=== PATIENT | female | born 2000 | race African-American/Black ===

== ENCOUNTER 2024-07-29 11:06 | Outpatient (CLI) | payer BC, SELFPAY ==
--- NOTE | ~2024-07-29 | XR_ITS ---
Clinical Indication: Chest pain PA and lateral views of the chest: Comparison: None Findings: The lungs are clear, without evidence of focal consolidation or pleural effusion. Cardiome diastinal silhouette is within normal limits. Bones and soft tissues are unremarkable. Impression: Normal chest. Reviewed, dictated and finalized at location . Impression: Normal chest.
[2024-07-29 12:14] LABS: Add Urine Microscopic? NO; Appearance Urine Clear (Clear); Bilirubin Urine Negative (Negative); Blood Urine Negative (Negative); Color Urine Yellow (Yellow); Glucose Urine UA Negative (Negative); Ketones Urine Negative (Negative); Leukocyte Esterase Ur Negative LEU/UL (Negative); Nitrate Urine Negative (Negative); Protein Urine Negative (Negative); Specific Grav Ur 1.026 (1.001-1.035); Urobilinogen Urine 0.2 mg/dL (<2.0); pH Urine 5.5 (5.0-9.0)
[2024-07-29 12:15] LABS: Hematocrit 36.7 % (37.0-47.0); Hemoglobin 11.1 g/dL (12.0-15.0); Mean Corpuscular HGB Conc 30.2 g/dl (32-36); Mean Corpuscular Hemoglobin 26.2 pg (26-34); Mean Corpuscular Volume 86.6 fl (80-100); Mean Platelet Volume 11.6 fl (7.4-10.4); Platelet Count Result 238 k/mm3 (150-375); Red Blood Count 4.24 M/mm3 (4.2-5.4); Red Cell Distribution Width 13.8 % (11.5-14.5); White Blood Count 4.4 K/mm3 (4.5-10.0)
[2024-07-29 12:29] LABS: Alanine Aminotransferase 12 U/L (6-35); Albumin Level 4.5 g/dL (3.5-5.1); Alkaline Phosphatase 47 U/L (38-126); Anion Gap 9 mmol/L (4-12); Aspartate Amino Transferase 26 U/L (14-36); Bilirubin,Total 0.5 mg/dL (0.2-1.3); Blood Urea Nitrogen 17 mg/dL (7-17); Calcium 9.3 mg/dL (8.4-10.2); Carbon Dioxide 23 mmol/L (22-30); Chloride 107 mmol/L (98-107); Cholesterol 152 mg/dL (0-200); Estimated Glomerular Filt Rate > 60; Glucose 92 mg/dL (65-110); HDL Direct 70 mg/dL; Potassium 3.8 mmol/L (3.4-5.0); Sodium 139 mmol/L (137-145); Triglycerides 37 mg/dL (<150)
[2024-07-29 12:40] LABS: LDL Cholesterol Direct 55 mg/dL
[2024-07-29 12:42] LABS: Creatinine Urine 228.8 mg/dL
[2024-07-29 12:44] LABS: Hemoglobin A1C 5.5 % (<5.7)
[2024-07-29 12:46] LABS: MALB Creatinine Ratio 4.2 mg/g (0-30); Microalbumin Urine Random 9.6 mg/L (0-16.7)
[2024-07-29 12:57] LABS: Thyroid Stimulating Hormone 0.967 uIU/mL (0.465-4.680)
[2024-07-29 13:05] LABS: Free T4 Free Thyroxine 1.12 ng/mL (0.78-2.19)
[2024-07-29 13:37] LABS: Vitamin D 25 Hydroxy < 12.8 ng/mL
[2024-08-02 16:52] LABS: H pylori, Urea Breath NOT DETECTED (NOT DETECTED)
== END 2024-07-29 11:07 | disposition home or self-care (01) ==
PROVIDERS: PCP Emergency Medicine; Visit Provider Emergency Medicine
DX: K21.00 Gastro-esophageal reflux disease with esophagitis, without bleeding (principal); R07.9 Chest pain, unspecified; R06.02 Shortness of breath; Z00.00 Encounter for general adult medical examination without abnormal findings
CPT/HCPCS: 36415; 71046; 80053; 80061; 81003; 82043; 82306; 83013; 83036; 84439; 84443; 85027